=== PATIENT | female | born 1940 | race Caucasian/White ===

== ENCOUNTER 2024-09-02 13:43 | Inpatient (IN) | payer MEDICARE, OTHER ==
[~2024-09-02] VITALS: Ht 162.5 cm; Wt 98.4 kg
[2024-09-02 13:49] VITALS: BP 164/82
[2024-09-02] MEDS ORDERED: FAMOTIDINE40 MG PO (13:52)
[2024-09-02] MEDS ORDERED: CALCIUM500 M1 PO (13:52)
[2024-09-02] MEDS ORDERED: IRON325 M1 PO (13:53)
[2024-09-02] MEDS ORDERED: GEMTESA75 MG PO (13:54)
[2024-09-02] MEDS ORDERED: LEVOTHYROXINE175 MC1 PO (13:55)
[2024-09-02] MEDS ORDERED: LOSARTAN POTASS25 M1 PO (13:55)
[2024-09-02] MEDS ORDERED: LOVASTATIN40 MG PO (13:56)
[2024-09-02] MEDS ORDERED: NAPROXEN250 MG PO (13:56)
[2024-09-02] MEDS ORDERED: OMEPRAZOLE40 MG PO (13:57)
[2024-09-02] MEDS ORDERED: POTASSIUM CHLO10 ME4 PO (13:57)
[2024-09-02] MEDS ORDERED: TRAZODONE50 MG PO (13:57)
[2024-09-02] MEDS ORDERED: VITAMIN C WITH500 MG PO (13:58)
[2024-09-02] MEDS ORDERED: VITAMIN B650 M1 PO (13:58)
[2024-09-02] MEDS ORDERED: PEPCID AC20 MG PO (13:59)
[2024-09-02 14:16] LABS: BASO # 0.1 10*3/uL (0.0-0.1); BASO % 1.2 % (0.0-1.0); EOS # 0.1 10*3/uL (0.0-0.4); EOS % 3.4 % (1.0-4.0); HEMATOCRIT 36.4 % (37.0-47.0); MEAN CELL VOLUME 101.4 fl (81.0-99.0); MEAN CORPUSCULAR HGB 30.6 pg (27.0-31.0); MEAN CORPUSCULAR HGB CONC 30.2 g/dl (33.0-37.0); MEAN PLATELET VOLUME 8.6 fl (9.6-12.3); MONO # 0.4 10*3/uL (0.1-1.0); MONO % 10.1 % (3.0-9.0); NEUT # 2.7 10*3/uL (2.3-7.9); NEUT % 65.8 % (47.0-73.0); PLATELET COUNT AUTOMATED 204 10*3/uL (130-400); RED BLOOD COUNT 3.59 10*6/uL (4.10-5.10); RED CELL DISTRI WIDTH 14.2 % (0-14.5); WHITE BLOOD COUNT 4.2 10*3/uL (4.8-10.8)
[2024-09-02 14:16] LABS: BILIRUBIN Negative (Negative); BLOOD Trace-Lysed (Negative); CLARITY Clear (Clear); COLOR Yellow (Yellow); GLUCOSE Negative (Negative); KETONE Negative (Negative); LEUKO ESTERASE 1+ (Negative); NITRITE Negative (Negative); SPECIFIC GRAVITY <= 1.005 (1.001-1.030); UROBILINOGEN 0.2 E.U./dl (0.0-1.0)
[2024-09-02 14:32] LABS: URINE AMPHETAMINES Negative (1000ng/ml); URINE BARBITURATES Negative (200ng/ml); URINE BENZODIAZEPINES Negative (200ng/ml); URINE CANNABINOIDS (THC) Negative (50ng/ml); URINE COCAINE Negative (300ng/ml); URINE METHADONE Negative (300ng/ml); URINE OPIATES Negative (300ng/ml); URINE PHENCYCLIDINE Negative (25ng/ml)
[2024-09-02 14:34] LABS: BACTERIA 4+
[2024-09-02 14:36] LABS: ALKALINE PHOSPHATASE 81 U/L (46-116); BUN 14 mg/dl (9-23); CHLORIDE 106 mmol/L (98-107); POTASSIUM 3.6 mmol/L (3.4-5.1); TOTAL PROTEIN 6.9 gm/dL (6.0-8.0)
[2024-09-02 14:38] LABS: SGPT/ALT < 7 U/L (5-49)
[2024-09-02 18:08] VITALS: BP 102/78
[2024-09-02] MEDS ORDERED: TYLENOL325 M2 PO (19:33)
[2024-09-02] MEDS ORDERED: Ipratropium Brom3 ML INH (19:35)
[2024-09-02] MEDS ORDERED: PULMICORT RES0.25 M1 INH (19:36)
[2024-09-02] MEDS ORDERED: SENNA8.6 MG PO (19:39)
[2024-09-02] MEDS ORDERED: EXELON1 EACH T (19:40)
[2024-09-02] MEDS ORDERED: NAMENDA-5 PO (19:43)
[2024-09-02] MEDS ORDERED: REMERON15 M2 PO (19:44)
[2024-09-02] MEDS ORDERED: ATIVAN1 MG PO (19:48)
[2024-09-02] MEDS ORDERED: ATIVAN2 MG/1 ML IM (19:49)
[2024-09-02] MEDS ORDERED: GEODON20 MG/1 ML IM (19:50)
[2024-09-02] MEDS ORDERED: LORazepam 2 MG/ML VIAL IM PRN (19:55)
[2024-09-02 20:00] VITALS: BP 102/78
[2024-09-02] MEDS ORDERED: MG-AL HYDROXIDE/SIMETICONE 30 ML UDC PO PRN (20:00)
[2024-09-02] MEDS ORDERED: ACETAMINOPHEN 325 MG TAB PO PRN (20:00)
[2024-09-02] MEDS ORDERED: Magnesium Hydroxide 30 ML UDC PO PRN (20:00)
[2024-09-02] MEDS ORDERED: Ziprasidone Mesylate 20 MG VIAL IM SCH (20:00)
[2024-09-02] MEDS ORDERED: Menthol/Zinc Oxide 4 GM THIN T PRN (20:05)
[2024-09-02] MEDS ORDERED: Ziprasidone Mesylate 20 MG VIAL IM PRN (20:12)
[2024-09-02] MEDS ORDERED: Sennosides A and B 8.6 MG TAB PO PRN (20:35)
[2024-09-02] MEDS ORDERED: Albuterol Sulf/Ipratropium 3 ML VIAL NEB SCH (20:40)
[2024-09-02] MEDS ORDERED: BUDESONIDE 0.25 MG NEB SCH (21:00)
[2024-09-02] MEDS ORDERED: ATORVASTATIN CALCIUM 10 MG TAB PO SCH (21:00)
[2024-09-02] MEDS ORDERED: ASCORBIC ACID 500 MG TAB PO SCH (21:00)
[2024-09-02] MEDS ORDERED: FAMOTIDINE 20 MG TAB PO SCH (22:00)
[2024-09-02] MEDS ORDERED: Nitrofurantoin Monohydrate/N 100 MG CAP PO SCH (22:00)
[2024-09-03 06:25] LABS: BASO # 0.1 10*3/uL (0.0-0.1); BASO % 0.9 % (0.0-1.0); EOS # 0.2 10*3/uL (0.0-0.4); EOS % 2.9 % (1.0-4.0); MEAN CELL VOLUME 101.4 fl (81.0-99.0); MEAN CORPUSCULAR HGB CONC 30.6 g/dl (33.0-37.0); MEAN PLATELET VOLUME 8.6 fl (9.6-12.3); MONO # 0.6 10*3/uL (0.1-1.0); MONO % 9.7 % (3.0-9.0); NEUT # 4.2 10*3/uL (2.3-7.9); NEUT % 72.2 % (47.0-73.0); PLATELET COUNT AUTOMATED 194 10*3/uL (130-400); RED BLOOD COUNT 3.45 10*6/uL (4.10-5.10); WHITE BLOOD COUNT 5.8 10*3/uL (4.8-10.8)
[2024-09-03 06:52] LABS: ALKALINE PHOSPHATASE 74 U/L (46-116); BUN 11 mg/dl (9-23); CHLORIDE 106 mmol/L (98-107); CHOLESTEROL 123 mg/dL (<200); LDL CHOLESTEROL 67 mg/dL (9-159); POTASSIUM 3.9 mmol/L (3.4-5.1); SGPT/ALT 8 U/L (5-49); TOTAL PROTEIN 6.5 gm/dL (6.0-8.0); TRIGLYCERIDES 77 mg/dl (<150)
[2024-09-03 07:18] LABS: VALPROIC ACID (DEPAKENE) < 3.0 ug/ml (50-100)
[2024-09-03 07:23] LABS: VITAMIN D, 25-HYDROXY 52.2 ng/mL (30-100)
[2024-09-03] MEDS ORDERED: Levothyroxine Sodium 175 MCG TAB PO SCH (07:30)
[2024-09-03 08:00] VITALS: BP 120/69
[2024-09-03 08:08] VITALS: BP 120/69
[2024-09-03] MEDS ORDERED: OMEPRAZOLE 20 MG CAP PO SCH (09:00)
[2024-09-03] MEDS ORDERED: Rivastigmine Tartrate 4.6 MG/24 HR PATCH T SCH (09:55)
[2024-09-03] MEDS ORDERED: CYANOCOBALAMIN 1,000 MCG/ML VIAL IM SCH ×2 (10:00→13:00)
[2024-09-03] MEDS ORDERED: NAPROXEN 500 MG TAB PO SCH (10:00)
[2024-09-03] MEDS ORDERED: Losartan Potassium 25 MG TAB PO SCH (10:00)
[2024-09-03] MEDS ORDERED: PYRIDOXINE 50 MG TAB PO SCH (10:00)
[2024-09-03] MEDS ORDERED: POTASSIUM CHLORIDE 20 MEQ TAB PO SCH (10:00)
[2024-09-03] MEDS ORDERED: FERROUS SULFATE 325 MG TAB PO SCH (10:00)
[2024-09-03 20:00] VITALS: BP 145/53
[2024-09-03] MEDS ORDERED: Memantine Hydrochloride 5 MG TAB PO SCH (21:00)
[2024-09-04 08:00] VITALS: BP 105/47
[2024-09-04] MEDS ORDERED: Memantine Hydrochloride 5 MG TAB PO SCH (09:00)
[2024-09-04] MEDS ORDERED: Albuterol Sulf/Ipratropium 3 ML VIAL NEB SCH (13:00)
[2024-09-04 20:00] VITALS: BP 148/50
[2024-09-04] MEDS ORDERED: QUETIAPINE FUMARATE 25 MG TAB PO SCH (21:00)
[2024-09-04] MEDS ORDERED: Ciprofloxacin Hydrochloride 250 MG TAB PO SCH (21:00)
[2024-09-05 08:00] VITALS: BP 112/56
[2024-09-05 20:00] VITALS: BP 122/74
[2024-09-06 08:00] VITALS: BP 106/56
[2024-09-06 20:00] VITALS: BP 127/64
[2024-09-06] MEDS ORDERED: OLANZAPINE 2.5 MG TAB PO SCH (21:00)
[2024-09-07 07:56] VITALS: BP 139/83
[2024-09-07] MEDS ORDERED: Albuterol Sulf/Ipratropium 3 ML VIAL NEB PRN (08:35)
[2024-09-07 20:00] VITALS: BP 128/78
[2024-09-07] MEDS ORDERED: Memantine Hydrochloride 10 MG TAB PO SCH (21:00)
[2024-09-07] MEDS ORDERED: LORazepam 1 MG TAB PO PRN (23:05)
[2024-09-08 08:56] VITALS: BP 116/47
[2024-09-08] MEDS ORDERED: Rivastigmine Tartrate 9.5 MG/24 HR PATCH T SCH (09:00)
[2024-09-08 20:00] VITALS: BP 115/49
[2024-09-08] MEDS ORDERED: OLANZAPINE 2.5 MG TAB PO SCH (21:00)
[2024-09-09 06:55] VITALS: BP 144/72
[2024-09-09] MEDS ORDERED: FLUCONAZOLE 150 MG TAB PO ONE (08:45)
[2024-09-09 20:00] VITALS: BP 103/56
[2024-09-10 08:21] VITALS: BP 148/51
[2024-09-10 20:00] VITALS: BP 113/61
[2024-09-11 07:44] VITALS: BP 123/99
[2024-09-11] MEDS ORDERED: RIVASTIGMINE 13.3 MG/24 HR TDM T SCH (09:00)
[2024-09-11 20:00] VITALS: BP 112/42
[2024-09-12 08:00] VITALS: BP 122/90
[2024-09-12 10:29] LABS: BASO # 0.1 10*3/uL (0.0-0.1); BASO % 0.5 % (0.0-1.0); EOS # 0.1 10*3/uL (0.0-0.4); EOS % 0.8 % (1.0-4.0); MEAN CELL VOLUME 99.4 fl (81.0-99.0); MEAN CORPUSCULAR HGB 30.7 pg (27.0-31.0); MEAN CORPUSCULAR HGB CONC 30.8 g/dl (33.0-37.0); MONO # 0.8 10*3/uL (0.1-1.0); MONO % 7.3 % (3.0-9.0); NEUT # 9.3 10*3/uL (2.3-7.9); NEUT % 83.8 % (47.0-73.0); PLATELET COUNT AUTOMATED 291 10*3/uL (130-400); RED BLOOD COUNT 3.62 10*6/uL (4.10-5.10); RED CELL DISTRI WIDTH 13.6 % (0-14.5); WHITE BLOOD COUNT 11.1 10*3/uL (4.8-10.8)
[2024-09-12 10:55] LABS: TOTAL PROTEIN 6.9 gm/dL (6.0-8.0)
[2024-09-12 20:00] VITALS: BP 144/86
[2024-09-12] MEDS ORDERED: OLANZAPINE 7.5 MG TAB PO SCH (21:00)
[2024-09-12] MEDS ORDERED: RAMELTEON 8 MG TAB PO SCH (21:00)
[2024-09-12 22:22] LABS: BILIRUBIN Negative (Negative); BLOOD Negative (Negative); CLARITY Cloudy (Clear); COLOR Dark Yellow (Yellow); GLUCOSE Negative (Negative); KETONE 1+ (Negative); LEUKO ESTERASE 2+ (Negative); NITRITE Negative (Negative)
[2024-09-12 22:40] LABS: WBC 41-50 wbc/hpf (0-5)
[2024-09-12 22:41] LABS: BACTERIA 2+; CALCIUM OXALATE CRYSTALS Trace; MUCOUS 1+
[2024-09-13 08:31] VITALS: BP 120/80
[2024-09-13] MEDS ORDERED: NYSTATIN 15 GM BOT T SCH (14:00)
[2024-09-13 19:48] VITALS: BP 112/59
[2024-09-14 07:51] VITALS: BP 139/41
[2024-09-14 20:00] VITALS: BP 114/54; BP 94/43
[2024-09-15 08:56] VITALS: BP 111/47
[2024-09-15 20:00] VITALS: BP 103/33
[2024-09-16] MEDS ORDERED: LORazepam 1 MG TAB PO PRN (03:25)
[2024-09-16 08:20] VITALS: BP 104/50
[2024-09-16] MEDS ORDERED: NYSTATIN 15 GM BOT T SCH (14:00)
[2024-09-17 08:00] VITALS: BP 145/59
[2024-09-17 19:45] VITALS: BP 133/62
[2024-09-18 07:42] VITALS: BP 130/48
[2024-09-18 09:54] LABS: BASO % 0.5 % (0.0-1.0); EOS # 0.2 10*3/uL (0.0-0.4); EOS % 2.2 % (1.0-4.0); HEMATOCRIT 34.2 % (37.0-47.0); MEAN CELL VOLUME 98.6 fl (81.0-99.0); MEAN CORPUSCULAR HGB 30.5 pg (27.0-31.0); MEAN PLATELET VOLUME 8.9 fl (9.6-12.3); MONO # 0.7 10*3/uL (0.1-1.0); MONO % 8.5 % (3.0-9.0); NEUT # 6.1 10*3/uL (2.3-7.9); NEUT % 80.7 % (47.0-73.0); PLATELET COUNT AUTOMATED 269 10*3/uL (130-400); RED BLOOD COUNT 3.47 10*6/uL (4.10-5.10); RED CELL DISTRI WIDTH 13.6 % (0-14.5); WHITE BLOOD COUNT 7.6 10*3/uL (4.8-10.8)
[2024-09-18 10:32] LABS: ALKALINE PHOSPHATASE 101 U/L (46-116); BUN 23 mg/dl (9-23); CHLORIDE 110 mmol/L (98-107); POTASSIUM 4.3 mmol/L (3.4-5.1); SGPT/ALT 12 U/L (5-49); TOTAL PROTEIN 6.1 gm/dL (6.0-8.0)
[2024-09-18 20:00] VITALS: BP 132/58
[2024-09-19 07:44] VITALS: BP 115/75
[2024-09-19] MEDS ORDERED: LORazepam 0.5 MG TAB PO PRN (09:34)
[2024-09-19 19:12] VITALS: BP 124/85
[2024-09-19] MEDS ORDERED: QUETIAPINE FUMARATE 25 MG TAB PO SCH (21:00)
[2024-09-20 07:10] LABS: BUN 30 mg/dl (9-23); CHLORIDE 110 mmol/L (98-107); POTASSIUM 3.6 mmol/L (3.4-5.1)
[2024-09-20 07:56] VITALS: BP 112/45
[2024-09-20] MEDS ORDERED: SODIUM CHLORIDE 0.9% 1,000 ML IV ONE (09:30)
[2024-09-20 11:38] LABS: BILIRUBIN Negative (Negative); BLOOD Negative (Negative); CLARITY Clear (Clear); COLOR Dark Yellow (Yellow); GLUCOSE Negative (Negative); KETONE Trace (Negative); LEUKO ESTERASE Trace (Negative); NITRITE Negative (Negative)
[2024-09-20 11:57] LABS: BACTERIA 3+
[2024-09-20 11:59] LABS: EPITHELIAL CELLS 0-2
[2024-09-20 20:00] VITALS: BP 127/106
[2024-09-21 07:09] LABS: BASO # 0.1 10*3/uL (0.0-0.1); BASO % 0.5 % (0.0-1.0); EOS # 0.2 10*3/uL (0.0-0.4); EOS % 1.5 % (1.0-4.0); HEMATOCRIT 33.7 % (37.0-47.0); MEAN CELL VOLUME 99.7 fl (81.0-99.0); MEAN CORPUSCULAR HGB 30.5 pg (27.0-31.0); MEAN CORPUSCULAR HGB CONC 30.6 g/dl (33.0-37.0); MEAN PLATELET VOLUME 9.2 fl (9.6-12.3); MONO # 0.9 10*3/uL (0.1-1.0); MONO % 8.2 % (3.0-9.0); NEUT # 8.9 10*3/uL (2.3-7.9); NEUT % 82.2 % (47.0-73.0); PLATELET COUNT AUTOMATED 295 10*3/uL (130-400); RED BLOOD COUNT 3.38 10*6/uL (4.10-5.10); RED CELL DISTRI WIDTH 13.5 % (0-14.5); WHITE BLOOD COUNT 10.8 10*3/uL (4.8-10.8)
[2024-09-21 07:37] LABS: BUN 28 mg/dl (9-23); CHLORIDE 111 mmol/L (98-107); POTASSIUM 3.4 mmol/L (3.4-5.1)
[2024-09-21 08:00] VITALS: BP 105/43
[2024-09-21 20:00] VITALS: BP 100/80
[2024-09-21] MEDS ORDERED: QUETIAPINE FUMARATE 50 MG TAB PO SCH (21:00)
[2024-09-22 08:00] VITALS: BP 110/40
[2024-09-22 08:21] LABS: BASO % 0.3 % (0.0-1.0); EOS # 0.1 10*3/uL (0.0-0.4); EOS % 1.1 % (1.0-4.0); HEMATOCRIT 34.5 % (37.0-47.0); MEAN CORPUSCULAR HGB 30.1 pg (27.0-31.0); MEAN CORPUSCULAR HGB CONC 30.7 g/dl (33.0-37.0); MEAN PLATELET VOLUME 9.1 fl (9.6-12.3); MONO # 0.9 10*3/uL (0.1-1.0); MONO % 6.6 % (3.0-9.0); NEUT # 11.1 10*3/uL (2.3-7.9); PLATELET COUNT AUTOMATED 318 10*3/uL (130-400); RED BLOOD COUNT 3.52 10*6/uL (4.10-5.10); RED CELL DISTRI WIDTH 13.5 % (0-14.5); WHITE BLOOD COUNT 12.9 10*3/uL (4.8-10.8)
[2024-09-22 08:49] LABS: BUN 26 mg/dl (9-23); CHLORIDE 110 mmol/L (98-107); POTASSIUM 3.6 mmol/L (3.4-5.1)
[2024-09-22] MEDS ORDERED: AMOXICILLIN 875 MG TAB PO SCH (09:00)
[2024-09-22 20:00] VITALS: BP 104/54
[2024-09-23 08:21] VITALS: BP 107/46
[2024-09-23] MEDS ORDERED: QUETIAPINE FUMA50 M1 PO (08:36)
[2024-09-23] MEDS ORDERED: MEMANTINE HCL10 MG PO (08:36)
[2024-09-23] MEDS ORDERED: LORAZEPAM0.5 M1 PO (08:36)
[2024-09-23] MEDS ORDERED: RIVASTIGMINE1 EAC2 T (08:36)
[2024-09-23] MEDS ORDERED: AMOXICILLIN875 MG PO (09:15)
[2024-09-23] MEDS ORDERED: LORazepam 0.5 MG TAB PO SCH (21:00)
== END 2024-09-23 10:57 | DRG 56 ==
LOC: ED 13:43 → 3N 16:44
PROVIDERS: Nurse Practitioner; Registered Nurse; Student in an Organized Health Care Education/Training Program; ADMIT Psychiatry & Neurology Psychiatry; ATTEND Psychiatry & Neurology Psychiatry
PROC: GZ72ZZZ Family Psychotherapy (ICD-10-PCS; principal; 2024-09-02)
PROC: GZ51ZZZ Individual Psychotherapy, Behavioral (ICD-10-PCS; 2024-09-02)
PROC: GZ56ZZZ Individual Psychotherapy, Supportive (ICD-10-PCS; 2024-09-02)
DX: G30.9 Alzheimer's disease, unspecified (principal); F02.818 Dementia in other diseases classified elsewhere, unspecified severity, with other behavioral disturbance; N17.0 Acute kidney failure with tubular necrosis; F23 Brief psychotic disorder; N39.0 Urinary tract infection, site not specified; F22 Delusional disorders; F41.9 Anxiety disorder, unspecified; D53.9 Nutritional anemia, unspecified; E53.1 Pyridoxine deficiency; D72.810 Lymphocytopenia; J44.9 Chronic obstructive pulmonary disease, unspecified; K21.9 Gastro-esophageal reflux disease without esophagitis; B37.31 Acute candidiasis of vulva and vagina; R31.9 Hematuria, unspecified; R33.9 Retention of urine, unspecified; D50.9 Iron deficiency anemia, unspecified; E54 Ascorbic acid deficiency; I10 Essential (primary) hypertension; Z90.710 Acquired absence of both cervix and uterus; Z83.3 Family history of diabetes mellitus; Z82.49 Family history of ischemic heart disease and other diseases of the circulatory system